=== PATIENT | female | born 1980 | race Caucasian/White ===

== ENCOUNTER 2018-10-28 12:20 | Emergency (ER) | payer OTHER ==
--- NOTE | 2018-10-28 12:39 | ER ---
Nurse's Notes [facility] Name: Laxmi Sunday Age: 37 yrs Sex: Female : 1980 Arrival Date: 10/28/2018 Time: 12:25 Bed 12 Private MD: out of town, doctor Diagnosis: Encounter for issue of repeat prescription Presentation: 10/28 12:26 Presenting complaint: Patient states: i ran out of my Lamictal, only have 2 more pills; hj we travel using RV all the time; denies episode of seizure lately; denies pertinent symptoms;. Transition of care: patient was not received from another setting of care. Onset of symptoms was October 28, 2018. Risk Assessment: Do you want to hurt yourself or someone else? Patient reports no desire to harm self or others. Initial Sepsis Screen: Does the patient meet any 2 criteria? No. Patient's initial sepsis screen is negative. Does the patient have a suspected source of infection? No. Patient's initial sepsis screen is negative. Care prior to arrival: None. 12:26 Method Of Arrival: Ambulatory 12:26 Acuity: SARAH 5 hj Triage Assessment: 12:29 General: Appears in no apparent distress. uncomfortable, Behavior is calm, cooperative, hj appropriate for age. Pain: Denies pain. 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 - Social history:: Smoking status: Patient/guardian denies using tobacco, Patient/guardian denies using alcohol. - Ebola Screening: : Patient negative for fever greater than or equal to 101.5 degrees Fahrenheit, and additional compatible Ebola Virus Disease symptoms Patient denies exposure to infectious person Patient denies travel to an Ebola-affected area in the 21 days before illness onset. Screenin:29 Abuse screen: Denies threats or abuse. Denies injuries from another. Nutritional hj screening: No deficits noted. Tuberculosis screening: No symptoms or risk factors identified. Fall Risk None identified. Assessment: 12:33 General: Appears in no apparent distress. uncomfortable, Behavior is calm, cooperative, hj appropriate for age. Pain: Denies pain. Neuro: Level of Consciousness is awake, alert, obeys commands, Oriented to person, place, time, situation, Appropriate for age. Cardiovascular: Capillary refill < 3 seconds Patient's skin is warm and dry. Respiratory: Airway is patent Respiratory effort is even, unlabored, Respiratory pattern is regular, symmetrical. GI: No signs and/or symptoms were reported involving the gastrointestinal system. : No signs and/or symptoms were reported regarding the genitourinary system. EENT: No signs and/or symptoms were reported regarding the EENT system. Derm: No signs and/or symptoms reported regarding the dermatologic system. Musculoskeletal: No signs and/or symptoms reported regarding the musculoskeletal system. Vital Signs: 12:29 BP 105 / 87; Pulse 70; Resp 18; Temp 98.3(TE); Pulse Ox 98% on R/A; Weight 72.57 kg; hj Height 5 ft. 10 in. (177.80 cm); Pain 0/10; 12:29 Body Mass Index 22.96 (72.57 kg, 177.80 cm) ED Course: 12:25 Patient arrived in ED. mr 12:26 out of town, doctor is Private Physician. mr 12:27 Triage completed. hj 12:29 Arm band placed on left wrist. hj 12:31 Patient has correct armband on for positive identification. Bed in low position. Call hj light in reach. Side rails up X 1. 12:33 Kevin Linares RN is Primary Nurse. hj 12:36 Shahla Jack F[facility]-C [facility]. kb 12:36 Carlos Alberto Raza MD is Attending Physician. kb 12:46 No provider procedures requiring assistance completed. Patient did not have IV access hj during this emergency room visit. Administered Medications: No medications were administered Outcome: 12:38 Discharge ordered by . kb 12:46 Discharged to home ambulatory, with family. hj 12:46 Condition: stable 12:46 Discharge instructions given to patient, family, Instructed on discharge instructions, follow up and referral plans. medication usage, Demonstrated understanding of instructions, follow-up care, medications, Prescriptions given X 1. 12:46 Patient left the ED. marlen Signatures: Shahla Jack FNP-C FNP-Ckb Rivera, Mary mr Joaquin, Henry RN RN marlen
--- NOTE | 2018-10-28 12:39 | EDPHYS ---
Physician Documentation [facility] Name: Laxmi Sunday Age: 37 yrs Sex: Female : 1980 Arrival Date: 10/28/2018 Time: 12:25 Bed 12 Private MD: out of town, doctor ED Physician Carlos Alberto Raza HPI: 10/28 12:56 This 37 yrs old Female presents to ER via Ambulatory with complaints of kb Medication Refill. 12:56 The patient presents to the emergency department requesting refill(s) for: lamictal. kb The patient chronically suffers from seizures. The patient has not experienced similar symptoms in the past. The patient has not recently seen a physician. Pt states she takes lamictal 150mg PO BID for seizures. She is from [place] and won't be home until the beginning of November. She only has 2 pills left so she came in to get the medication refilled. 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 - Social history:: Smoking status: Patient/guardian denies using tobacco, Patient/guardian denies using alcohol. - Ebola Screening: : Patient negative for fever greater than or equal to 101.5 degrees Fahrenheit, and additional compatible Ebola Virus Disease symptoms Patient denies exposure to infectious person Patient denies travel to an Ebola-affected area in the 21 days before illness onset. ROS: 12:59 Constitutional: Negative for fever, chills, and weight loss, Eyes: Negative for injury, kb pain, redness, and discharge, ENT: Negative for injury, pain, and discharge, Neck: Negative for injury, pain, and swelling, Cardiovascular: Negative for chest pain, palpitations, and edema, Respiratory: Negative for shortness of breath, cough, wheezing, and pleuritic chest pain, Abdomen/GI: Negative for abdominal pain, nausea, vomiting, diarrhea, and constipation, Back: Negative for injury and pain, : Negative for injury, bleeding, discharge, and swelling, MS/Extremity: Negative for injury and deformity, Skin: Negative for injury, rash, and discoloration, Neuro: Negative for headache, weakness, numbness, tingling, and seizure. Exam: 12:59 Constitutional: This is a well developed, well nourished patient who is awake, alert, kb and in no acute distress. Head/Face: Normocephalic, atraumatic. Eyes: Pupils equal round and reactive to light, extra-ocular motions intact. Lids and lashes normal. Conjunctiva and sclera are non-icteric and not injected. Cornea within normal limits. Periorbital areas with no swelling, redness, or edema. ENT: Nares patent. No nasal discharge, no septal abnormalities noted. Tympanic membranes are normal and external auditory canals are clear. Oropharynx with no redness, swelling, or masses, exudates, or evidence of obstruction, uvula midline. Mucous membranes moist. Neck: Trachea midline, no thyromegaly or masses palpated, and no cervical lymphadenopathy. Supple, full range of motion without nuchal rigidity, or vertebral point tenderness. No Meningismus. Chest/axilla: Normal chest wall appearance and motion. Nontender with no deformity. No lesions are appreciated. Cardiovascular: Regular rate and rhythm with a normal S1 and S2. No gallops, murmurs, or rubs. Normal PMI, no JVD. No pulse deficits. Respiratory: Lungs have equal breath sounds bilaterally, clear to auscultation and percussion. No rales, rhonchi or wheezes noted. No increased work of breathing, no retractions or nasal flaring. Abdomen/GI: Soft, non-tender, with normal bowel sounds. No distension or tympany. No guarding or rebound. No evidence of tenderness throughout. Skin: Warm, dry with normal turgor. Normal color with no rashes, no lesions, and no evidence of cellulitis. MS/ Extremity: Pulses equal, no cyanosis. Neurovascular intact. Full, normal range of motion. Neuro: Awake and alert, GCS 15, oriented to person, place, time, and situation. Cranial nerves II-XII grossly intact. Motor strength 5/5 in all extremities. Sensory grossly intact. Cerebellar exam normal. Normal gait. Vital Signs: 12:29 BP 105 / 87; Pulse 70; Resp 18; Temp 98.3(TE); Pulse Ox 98% on R/A; Weight 72.57 kg; hj Height 5 ft. 10 in. (177.80 cm); Pain 0/10; 12:29 Body Mass Index 22.96 (72.57 kg, 177.80 cm) hj MDM: 12:36 Patient medically screened. kb 12:59 Data reviewed: vital signs, nurses notes. Data interpreted: Pulse oximetry: on room air kb is 98 %. Interpretation: normal. Counseling: I had a detailed discussion with the patient and/or guardian regarding: the historical points, exam findings, and any diagnostic results supporting the discharge/admit diagnosis, the need for outpatient follow up, a family practitioner, to return to the emergency department if symptoms worsen or persist or if there are any questions or concerns that arise at home. Administered Medications: No medications were administered Disposition: 17:57 Co-signature as Attending Physician, Carlos Alberto Raza MD Available for consultation at ps1 all times. . Disposition: 10/28/18 12:38 Discharged to Home. Impression: Encounter for issue of repeat prescription. - Condition is Stable. - Discharge Instructions: Medicine Refill at the Emergency Department. - Prescriptions for Lamictal 150 mg Oral tablet - take 1 tablet by ORAL route 2 times per day; 60 tablet. - Medication Reconciliation Form, Thank You Letter, Antibiotic Education, Prescription Opioid Use form. - Follow up: Emergency Department; When: As needed; Reason: Worsening of condition. Follow up: Private Physician; When: 2 - 3 days; Reason: Recheck today's complaints, Continuance of care, Re-evaluation by your physician. Signatures: Shahla Jack FNP-C FNP-Kevin Peña RN RN Carlos Alberto Hodge MD MD ps1 Corrections: (The following items were deleted from the chart) 12:46 12:38 10/28/2018 12:38 Discharged to Home. Impression: Encounter for issue of repeat hj prescription. Condition is Stable. Forms are Medication Reconciliation Form, Thank You Letter, Antibiotic Education, Prescription Opioid Use. Follow up: Emergency Department; When: As needed; Reason: Worsening of condition. Follow up: Private Physician; When: 2 - 3 days; Reason: Recheck today's complaints, Continuance of care, Re-evaluation by your physician. kb
== END 2018-10-28 12:46 | disposition home or self-care (01) ==
LOC: ER 12:20
DX: Z76.0 Encounter for issue of repeat prescription (principal); Z88.2 Allergy status to sulfonamides; I10 Essential (primary) hypertension
CPT/HCPCS: 99282